=== PATIENT | female | born 1980 | race Caucasian/White ===

== ENCOUNTER 2020-03-16 22:44 | Emergency (ER) | payer OTHER ==
[~2020-03-16] VITALS: Ht 162.6 cm; Wt 51.7 kg
[2020-03-16] MEDS ORDERED: DEPAKOTE ER500 M1 PO (22:56)
[2020-03-16] MEDS ORDERED: QUETIAPINE FUM100 MG PO (22:57)
[2020-03-16] MEDS ORDERED: BACTRIM DS TAB1 EACH PO (23:14)
[2020-03-16 23:22] VITALS: BP 131/47
== END 2020-03-16 23:23 | disposition home or self-care (01) ==
LOC: M.ERS 22:44
DX: S71.102A Unspecified open wound, left thigh, initial encounter (principal); L97.219 Non-pressure chronic ulcer of right calf with unspecified severity; L97.129 Non-pressure chronic ulcer of left thigh with unspecified severity; B95.62 Methicillin resistant Staphylococcus aureus infection as the cause of diseases classified elsewhere; K58.9 Irritable bowel syndrome, unspecified; Z88.0 Allergy status to penicillin; Z88.1 Allergy status to other antibiotic agents; Z88.6 Allergy status to analgesic agent; N80.9 Endometriosis, unspecified; Z87.442 Personal history of urinary calculi; X58.XXXA Exposure to other specified factors, initial encounter; Y93.89 Activity, other specified; Y92.89 Other specified places as the place of occurrence of the external cause; Y99.8 Other external cause status